=== PATIENT | male | born 1955 | race Caucasian/White ===

== ENCOUNTER 2017-01-02 15:03 | Emergency (ER) | payer MEDICARE, OTHER ==
[~2017-01-02] VITALS: Ht 172.7 cm; Wt 74.0 kg
[~2017-01-02 15:03] MED LIST: BACT800T5 PO; CEPH500C3 PO; IBUP800T23 PO
[2017-01-02 15:14] VITALS: BP 153/93; PULSE 93; RESP 17; TEMP 98.2; O2SAT 96
[2017-01-02] MEDS ORDERED: HYDR-3366 PO (15:31)
[2017-01-02] MEDS ORDERED: ALBUAER3 INH (16:00)
[2017-01-02] MEDS ORDERED: MOBI15TA PO (16:00)
--- NOTE | 2017-01-02 16:00 | PD ---
HPI Chief Complaint: Pain: Acute or Chronic Time Seen by Provider: 15:47 Travel History International Travel<30 days: No Contact w/Intl Traveler<30days: No Traveled to known affect area: No History of Present Illness HPI 61-year-old male complains of right groin pain. Patient states that he was doing some heavy lifting 6 days ago and started having right groin pain since then. Patient states the pain is sharp pain started at the right groin with radiation to the abdomen. Patient denies any fever. Patient denies any nausea vomiting diarrhea. Patient denies dysuria or frequency. Patient has history of COPD and is a smoker. Patient was using inhaler in the past but not recently. On a scale of 1-10 the pain is a 7. PFSH Past Medical History Hx Anticoagulant Therapy: No Cardiovascular Problems: No High Cholesterol: Yes Chemotherapy: No Cerebrovascular Accident: No Diabetes: No Diminished Hearing: No Musculoskeletal: Yes (herniated discs) Respiratory: Yes (PLEURISY) Immunizations Current: Yes Past Surgical History Abdominal Surgery: Yes (colostomy and reversal) Social History Alcohol Use: No Tobacco Use: Yes Substance Use: No Allergies-Medications (Allergen,Severity, Reaction): Coded Allergies: No Known Allergies (Unverified , 01/02/17) Reported Meds & Prescriptions Reported Meds & Active Scripts Active Proair Hfa 8.5 GM Inh (Albuterol Sulfate) 90 Mcg/Act Aer 2 Puff INH Q4-6H PRN 108 mcg/actuation Mobic (Meloxicam) 15 Mg Tab 15 Mg PO DAILY Reported E[place] (Hydrocodone-Acetaminophen) 10-325 Mg Tab 1 Tab PO Q6H PRN Review of Systems General / Constitutional: No: Fever Eyes: No: Visual changes HENT: No: Headaches Cardiovascular: No: Chest Pain or Discomfort Respiratory: Positive: Cough, No: Shortness of Breath Gastrointestinal: Positive: Abdominal Pain Genitourinary: No: Dysuria Musculoskeletal: No: Pain Skin: No Rash Neurologic: No: Weakness Psychiatric: No: Depression Endocrine: No: Polydipsia Hematologic/Lymphatic: No: Easy Bruising Physical Exam Narrative GENERAL: Well-nourished, well-developed patient. SKIN: Focused skin assessment warm/dry. HEAD: Normocephalic. EYES: No scleral icterus. No injection or drainage. NECK: Supple, trachea midline. No JVD or lymphadenopathy. CARDIOVASCULAR: Regular rate and rhythm without murmurs, gallops, or rubs. RESPIRATORY: Breath sounds equal bilaterally. No accessory muscle use. Patient has mild expiratory wheezes bilaterally. No rhonchi . GASTROINTESTINAL: Abdomen soft, non-tender, nondistended. MUSCULOSKELETAL: No cyanosis, or edema. BACK: Nontender without obvious deformity. No CVA tenderness. Patient has small right inguinal hernia, reducible. Data Data Last Documented VS Vital Signs Date Time Temp Pulse Resp B/P Pulse Ox O2 Delivery O2 Flow Rate FiO2 01/02/17 15:14 98.2 93 17 153/93 96 96 MDM Medical Decision Making Medical Screen Exam Complete: Yes Emergency Medical Condition: Yes Differential Diagnosis Differential diagnosis including reducible inguinal hernia, strangulated inguinal hernia, incarcerated inguinal hernia. Narrative Course 61-year-old male right groin pain. Examination consistent with a small reducible right inguinal hernia. Patient has history COPD and has mild wheezing on examination. Diagnosis Primary Impression: Reducible right inguinal hernia Additional Impression: History of COPD Patient Instructions: General Instructions Additional Instructions: Mobic as needed for pain. Use inhaler as needed for wheezing and coughing. Follow-up with personal physician and surgeon. Return immediately if unable to reduce the hernia, intractable pain, fever, vomiting. Med/Other Pt SpecificInfo: Prescription(s) given Scripts Albuterol 8.5 GM Inh (Proair Hfa 8.5 GM Inh)90 Mcg/Act Aer2 Puff INH Q4-6H PRN ( SHORTNESS OF BREATH) #1 INHALER 108 mcg/actuation Prov:Kaushik Albert MD 01/02/17 Meloxicam (Mobic)15 Mg Tab15 Mg PO DAILY #30 TAB Prov:Kaushik Albert MD 01/02/17 Disposition: 01 DISCHARGE HOME Condition: Stable Kaushik Albert MD Jan 02, 2017 16:00
== END 2017-01-02 17:00 | disposition home or self-care (01) ==
LOC: NEPD 15:03
DX: K40.90 Unilateral inguinal hernia, without obstruction or gangrene, not specified as recurrent (principal)
CPT/HCPCS: 99283